=== PATIENT | female | born 1940 | race Caucasian/White ===

== ENCOUNTER 2016-05-12 10:03 | Outpatient (CLI) | payer MEDICARE ==
[2016-05-12 11:02] LABS: Prothrombin Time 43.9 SEC (12.0-14.7)
== END 2016-05-12 10:04 ==
LOC: HPCALD 10:03
PROVIDERS: ATTEND Family Medicine
DX: I48.91 Unspecified atrial fibrillation (principal)
CPT/HCPCS: 36415; 85610

== ENCOUNTER 2016-05-30 10:08 | Outpatient (CLI) | payer MEDICARE ==
[2016-05-30 10:54] LABS: Prothrombin Time 23.5 SEC (12.0-14.7)
[2016-05-30 11:08] LABS: #Basophils 0.1 thou/uL (0.0-0.2); #Eosinphils 0.1 thou/uL (0.0-0.7); #Lymphocytes 2.6 thou/uL (1.20-3.40); #Monocytes 0.6 thou/uL (0.11-0.59); #Neutrophils 5.5 thou/uL (1.40-6.50); %Basophils 0.7 % (0.0-1.0); %Eosinophils 1.2 % (0.0-10.0); %Monocytes 7.2 % (0.0-10.0); Hematocrit 40.7 % (36.0-47.0); Mean Platelet Volume 7.4 fL (7.4-10.4); Red Blood Cell (RBC) Count 4.39 mill/uL (4.20-5.40); White Blood Cell (WBC) Count 8.8 thou/uL (4.8-10.8)
[2016-05-30 11:23] LABS: ALT (SGPT) 15 U/L (0-55); AST (SGOT) 17 U/L (5-34); Alkaline Phosphatase 77 U/L (40-150); Anion Gap 17 mmol/L (10-20); BUN (Urea Nitrogen) 14 mg/dL (9.8-20.1); Bilirubin, Total 1.2 mg/dL (0.2-1.2); Calc. Creatinine Clearance 0 mL/min (70-130); Calcium 9.5 mg/dL (7.8-10.44); Carbon Dioxide 25 mmol/L (23-31); Chloride 100 mmol/L (98-107); Estimated GFR-MDRD 69; Globulin 2.9 g/dL (2.4-3.5); LDL Cholesterol, Calculated 98 mg/dL; Protein, Total 7.2 g/dL (5.8-8.1)
[2016-05-30 11:36] LABS: Hemoglobin A1c 6.9 % (4.0-6.0)
== END 2016-05-30 10:09 | disposition home or self-care (01) ==
LOC: HPCALD 10:08
PROVIDERS: ATTEND Family Medicine
DX: E78.5 Hyperlipidemia, unspecified (principal); E11.9 Type 2 diabetes mellitus without complications; I48.91 Unspecified atrial fibrillation; I10 Essential (primary) hypertension
CPT/HCPCS: 36415; 80053; 80061; 83036; 85025; 85610

== ENCOUNTER 2016-07-06 10:04 | Outpatient (CLI) | payer MEDICARE ==
[2016-07-06 10:22] LABS: Prothrombin Time 36.4 SEC (12.0-14.7)
== END 2016-07-06 10:05 | disposition home or self-care (01) ==
LOC: HPCALD 10:04
PROVIDERS: ATTEND Family Medicine
DX: I48.91 Unspecified atrial fibrillation (principal)
CPT/HCPCS: 36415; 85610

== ENCOUNTER 2016-07-21 10:05 | Outpatient (CLI) | payer MEDICARE ==
[2016-07-21 10:47] LABS: INR-International Normal Ratio 2.9
== END 2016-07-21 10:06 | disposition home or self-care (01) ==
LOC: HPCALD 10:05
PROVIDERS: ATTEND Family Medicine
DX: I48.91 Unspecified atrial fibrillation (principal)
CPT/HCPCS: 36415; 85610

== ENCOUNTER 2016-09-06 09:59 | Outpatient (CLI) | payer MEDICARE ==
[2016-09-06 11:01] LABS: INR-International Normal Ratio 2.2
== END 2016-09-06 10:00 | disposition home or self-care (01) ==
LOC: HPCALD 09:59
PROVIDERS: ATTEND Family Medicine
DX: I48.91 Unspecified atrial fibrillation (principal)
CPT/HCPCS: 36415; 85610

== ENCOUNTER 2016-10-12 10:52 | Outpatient (CLI) | payer MEDICARE ==
[2016-10-12 12:11] LABS: INR-International Normal Ratio 3.2; Prothrombin Time 34.1 SEC (12.0-14.7)
== END 2016-10-12 10:53 | disposition home or self-care (01) ==
LOC: HPCALD 10:52
PROVIDERS: ATTEND Family Medicine
DX: I48.91 Unspecified atrial fibrillation (principal)
CPT/HCPCS: 36415; 85610

== ENCOUNTER 2016-11-10 11:54 | Outpatient (CLI) | payer MEDICARE ==
[2016-11-10 12:26] LABS: INR-International Normal Ratio 2.3; Prothrombin Time 25.7 SEC (12.0-14.7)
[2016-11-10 12:31] LABS: Hemoglobin A1c 6.9 % (4.0-6.0)
== END 2016-11-10 11:55 | disposition home or self-care (01) ==
LOC: HPCALD 11:54
PROVIDERS: ATTEND Family Medicine
DX: I48.91 Unspecified atrial fibrillation (principal); E11.9 Type 2 diabetes mellitus without complications
CPT/HCPCS: 36415; 83036; 85610

== ENCOUNTER 2016-12-09 10:38 | Outpatient (CLI) | payer MEDICARE ==
[2016-12-09 11:21] LABS: INR-International Normal Ratio 3.3; Prothrombin Time 35.2 SEC (12.0-14.7)
== END 2016-12-09 10:39 | disposition home or self-care (01) ==
LOC: HPCALD 10:38
PROVIDERS: ATTEND Family Medicine
DX: I48.91 Unspecified atrial fibrillation (principal)
CPT/HCPCS: 36415; 85610

== ENCOUNTER 2017-01-12 10:17 | Outpatient (CLI) | payer MEDICARE ==
[2017-01-12 13:07] LABS: INR-International Normal Ratio 2.1; Prothrombin Time 24.1 SEC (12.0-14.7)
== END 2017-01-12 10:18 | disposition home or self-care (01) ==
LOC: HPCALD 10:17
PROVIDERS: ATTEND Family Medicine
DX: Z51.81 Encounter for therapeutic drug level monitoring (principal); I48.91 Unspecified atrial fibrillation; Z79.01 Long term (current) use of anticoagulants
CPT/HCPCS: 36415; 85610

== ENCOUNTER 2019-01-25 11:05 | Emergency (ER) | payer MEDICARE ==
[2019-01-25 11:37] LABS: #Basophils 0.1 thou/uL (0.0-0.2); #Lymphocytes 2.2 thou/uL (1.20-3.40); #Monocytes 0.7 thou/uL (0.11-0.59); #Neutrophils 10.3 thou/uL (1.40-6.50); %Basophils 0.5 % (0.0-1.0); %Eosinophils 0.2 % (0.0-10.0); %Lymphocytes 16.9 % (21.0-51.0); %Neutrophils 77.5 % (42.0-75.0); Hemoglobin 11.9 g/dL (12.0-16.0); Mean Corpuscular HGB CONC 32.5 g/dL (32.0-36.0); Mean Corpuscular Hemoglobin 29.3 pg (27.0-31.0); Mean Corpuscular Volume 90.2 fL (78.0-98.0); Mean Platelet Volume 7.6 fL (7.4-10.4); Platelet Count 304 thou/uL (130-400); Red Blood Cell (RBC) Count 4.05 mill/uL (4.20-5.40); White Blood Cell (WBC) Count 13.3 thou/uL (4.8-10.8)
[2019-01-25 11:52] LABS: ALT (SGPT) 21 U/L (8-55); AST (SGOT) 22 U/L (5-34); Alkaline Phosphatase 93 U/L (40-110); Anion Gap 16 mmol/L (10-20); BUN (Urea Nitrogen) 9 mg/dL (9.8-20.1); Bilirubin, Total 0.7 mg/dL (0.2-1.2); Calc. Creatinine Clearance 0 mL/min (70-130); Calcium 8.9 mg/dL (7.8-10.44); Carbon Dioxide 25 mmol/L (23-31); Chloride 104 mmol/L (98-107); Estimated GFR-MDRD 71; Globulin 3.5 g/dL (2.4-3.5); Glucose 144 mg/dL (83-110); PTT 196.6 SEC (22.9-36.1); Potassium 3.2 mmol/L (3.5-5.1); Protein, Total 7.5 g/dL (6.0-8.3); Sodium 142 mmol/L (136-145)
[2019-01-25] MEDS ORDERED: Metoprolol Tartrate 5 MG/5 ML VIAL ONE ×4 (11:52→12:53)
[2019-01-25 11:55] LABS: Prothrombin Time Greater than 150.0 SEC (12.0-14.7)
[2019-01-25] MEDS ORDERED: Phytonadione 10 MG/ML AMP ONE (12:05)
[2019-01-25 12:51] LABS: Bilirubin Negative (Negative); Blood, Urine Trace (Negative); Clarity Cloudy (Clear); Glucose, Urine (Dipstick) Negative (Negative); Leukocyte Trace (Negative); Nitrite Positive (Negative); Protein, Urine (Dipstick) Trace mg/dL (Neg-Trace); Urobilinogen 0.2 mg/dL (Less than 2)
[2019-01-25 12:53] LABS: Bacteria/HPF 4+ HPF (None Seen); RBC/HPF 0-3 HPF (0-3); Squamous Epithelial 0-3 HPF (0-3)
--- NOTE | 2019-01-25 15:30 | RAD ---
PORTABLE CHEST: Date: 01/25/19 An AP portable film at 1130 hours is compared with an 03/06/09 study. The heart is mildly enlarged. While the upper lobe vessels are minimally more prominent today than th ey were before, there is no pulmonary edema, pleural effusion, or overt edema. No focal pulmonary inf iltrates are seen. Trachea is midline. IMPRESSION: Cardiomegaly. Very minor prominence of upper lobe vessels which may or may not be of significance. POS: HOME
== END 2019-01-25 12:59 | disposition short-term general hospital (02) ==
LOC: BURERS 11:05
DX: T45.511A Poisoning by anticoagulants, accidental (unintentional), initial encounter (principal); S50.11XA Contusion of right forearm, initial encounter; I48.91 Unspecified atrial fibrillation; E11.9 Type 2 diabetes mellitus without complications; E78.2 Mixed hyperlipidemia; I10 Essential (primary) hypertension; Z79.899 Other long term (current) drug therapy; Z79.84 Long term (current) use of oral hypoglycemic drugs; Z79.01 Long term (current) use of anticoagulants; X58.XXXA Exposure to other specified factors, initial encounter
CPT/HCPCS: 71045; 81003; 81015; 82274; 83605; 84484; 85730; 87040; 93005; 96374; 96376; J3430

== ENCOUNTER 2020-03-03 09:55 | Emergency (ER) | payer MEDICARE ==
[2020-03-03 11:17] LABS: #Basophils 0.1 thou/uL (0.0-0.2); #Eosinphils 0.1 thou/uL (0.0-0.7); #Lymphocytes 2.7 thou/uL (1.20-3.40); #Monocytes 0.5 thou/uL (0.11-0.59); #Neutrophils 3.8 thou/uL (1.40-6.50); %Basophils 0.8 % (0.0-1.0); %Lymphocytes 37.4 % (21.0-51.0); %Monocytes 7.4 % (0.0-10.0); %Neutrophils 53.4 % (42.0-75.0); Hemoglobin 14.6 g/dL (12.0-16.0); Mean Corpuscular HGB CONC 33.3 g/dL (32.0-36.0); Mean Corpuscular Hemoglobin 31.3 pg (27.0-31.0); Platelet Count 207 thou/uL (130-400); RBC Distribution Width 11.7 % (11.5-14.5); Red Blood Cell (RBC) Count 4.66 mill/uL (4.20-5.40); White Blood Cell (WBC) Count 7.2 thou/uL (4.8-10.8)
[2020-03-03 11:31] LABS: ALT (SGPT) 16 U/L (8-55); AST (SGOT) 19 U/L (5-34); Albumin 4.5 g/dL (3.4-4.8); Alkaline Phosphatase 96 U/L (40-110); Anion Gap 17 mmol/L (10-20); BUN (Urea Nitrogen) 10 mg/dL (9.8-20.1); Bilirubin, Total 0.8 mg/dL (0.2-1.2); Calc. Creatinine Clearance 0 mL/min (70-130); Calcium 9.6 mg/dL (7.8-10.44); Carbon Dioxide 25 mmol/L (23-31); Chloride 103 mmol/L (98-107); Estimated GFR-MDRD 66; Globulin 3.4 g/dL (2.4-3.5); Glucose 155 mg/dL (83-110); Potassium 4.6 mmol/L (3.5-5.1); Protein, Total 7.9 g/dL (6.0-8.3); Sodium 140 mmol/L (136-145)
--- NOTE | 2020-03-03 17:20 | RAD ---
PORTABLE CHEST: 03/03/20 An AP portable film at 1105 is compared with a 01/25/19 study. The heart is mildly enlarged. The upper lobe vessels show very slight prominence. Borderline congesti ve change is possible. There is no edema, pleural effusions, or focal pulmonary infiltrates of concer n. Calcification is seen in the aortic arch. IMPRESSION: Cardiomegaly and arteriosclerosis with probable early congestive change. POS: HOME
== END 2020-03-03 12:31 | disposition home or self-care (01) ==
LOC: BURERS 09:55
DX: G56.03 Carpal tunnel syndrome, bilateral upper limbs (principal); I48.91 Unspecified atrial fibrillation; I10 Essential (primary) hypertension; E11.9 Type 2 diabetes mellitus without complications; E78.5 Hyperlipidemia, unspecified; E78.00 Pure hypercholesterolemia, unspecified; Z79.899 Other long term (current) drug therapy; Z79.84 Long term (current) use of oral hypoglycemic drugs; Z79.01 Long term (current) use of anticoagulants
CPT/HCPCS: 71045; 80053; 83880; 84484; 85025; 85379; 93005; 94760